=== PATIENT | male | born 1935 | race Two or more races ===

== ENCOUNTER → 2016-11-15 | Outpatient (CLI) | payer MEDICARE, BC ==
[~2016-11-15] MED LIST: 3N1 COMMODE MC; ASPI81TA3 PO; Indomethacin PO; LOSA100T7 PO; METF500T PO; OXYC-481 PO; SIMV20TA2 PO; TRAM50TA2 PO; WALK1EAC23 MC
--- NOTE | 2016-11-15 15:29 | RADRPT ---
PROCEDURE: XR pelvis/left hip. CLINICAL INDICATION: Hip pain TECHNIQUE: AP pelvis/AP and lateral left hip views performed. COMPARISON: No prior studies are available for comparison. FINDINGS: There is a left total hip replacement. There is no evidence of loosening of the prosthesis. No hardw are failure identified. There is moderate to severe right hip osteoarthrosis. This is associated with joint space narrowing, subchondral sclerosis and osteophytosis. There is normal osseous mineralization. No fractures or osseous lesions are identified. The soft tissues are unremarkable. IMPRESSION: Left total hip replacement. Moderate to severe right hip osteoarthrosis. RPTAT: [facility] .Donavan Yepez MD, MD Date Time Electronically viewed and signed by .Donavan Yepez MD, on 11/15/2016 15:28 .B/
== END | disposition home or self-care (01) ==
LOC: HKI 14:16
PROVIDERS: ATTEND Orthopaedic Surgery
DX: Z09 Encounter for follow-up examination after completed treatment for conditions other than malignant neoplasm (principal); Z96.642 Presence of left artificial hip joint
CPT/HCPCS: 73502; G0463